=== PATIENT | female | born 1955 | race Caucasian/White ===

== ENCOUNTER 2017-02-02 08:21 | Observation (INO) ==
[2017-02-02] MEDS ORDERED: NITROGLYCERIN SL 0.4 MG TABLET SL PRN (08:40)
[2017-02-02] MEDS ORDERED: ONDANSETRON 4 MG/2 ML VIAL IV PRN ×2 (08:40→11:12)
[2017-02-02] MEDS ORDERED: MORPHINE 2 MG/1 ML SYRINGE IV PRN (08:40)
[2017-02-02] MEDS ORDERED: ASPIRIN 325 MG TABLET PO STA (08:40)
[2017-02-02] MEDS ORDERED: METOPROLOL TARTRATE 5 MG/5 ML VIAL IV STA (08:40)
[2017-02-02] MEDS ORDERED: ENOXAPARIN 100 MG/ML SYRINGE SUBCUT STA (08:40)
[2017-02-02 08:59] LABS: Basophils % 0.6 % (0.0-0.8); Eosinophils % 0.6 % (0.00-10.9); Hematocrit 36.8 VOL% (35.7-47.0); Immature Granulocytes % 0.8 %; Immature Granulocytes Absolute 0.04 #; Lymphocytes # 1.9 10*3/uL (1.4-4.0); Mean Corpuscular HGB Conc 35.3 GM/DL (32-36); Mean Corpuscular Hemoglobin 31 PG (27-34); Mean Corpuscular Volume 88.2 FL (87-102); Mean Platelet Volume 9.9 FL (9.6-12.0); Monocytes # 0.4 10*3/uL (0.11-0.8); Monocytes % 8.7 % (1.7-12.7); Neutrophils # 2.5 10*3/uL (1.4-7.4); Neutrophils % 50.3 % (38.7-73.9); Platelet Count 225 T/CUMM (130-400); Red Blood Count 4.17 MC/CUMM (3.8-5.5); Red Cell Distribution Width 12.2 % (9.3-17.3)
[2017-02-02 09:06] LABS: PT Patient Result 10.5 SECS; Partial Thromboplastin Time 26.8 SECS (0-40)
[2017-02-02] MEDS ORDERED: METOPROLOL TARTRATE 5 MG/5 ML VIAL IV ONE (09:24)
[2017-02-02] MEDS ORDERED: ENOXAPARIN 100 MG/ML SYRINGE SUBCUT ONE (09:24)
[2017-02-02] MEDS ORDERED: ASPIRIN 325 MG TABLET ONE (09:24)
[2017-02-02 09:34] LABS: Apearance,Urine CLEAR (Clear); Bilirubin,Urine Negative (Negative); Blood, Urine Small mg/dL (Negative); Glucose,Urine (UA) Negative (Negative); Ketones,Urine Negative (Negative); Nitrite,Urine Negative (Negative); Protein,Urine Negative; RBC,Urine 2 /HPF (0-4); Squamous Epithelial Cell,Urine Occasional /HPF (0-10); Urine Color Yellow (Yellow); Urine Urobilinogen < 2.0 EU/DL (0.2-1.0); WBC,Urine 3 /HPF (0-6)
[2017-02-02 09:37] LABS: Bilirubin,Total 0.4 MG/DL (0.2-1.0); Calcium 8.9 MG/DL (8.5-10.1); Osmolality,Calculated 278.5 MOS/KG (273-304); Total Protein 6.9 G/DL (6.4-8.3)
[2017-02-02 09:44] LABS: Barbiturates Screen,Urine Negative (Negative); Benzodiazepines Screen,Urine Negative (Negative); Cannabinoid Screen,Urine Negative (Negative); Opiate Screen,Urine Negative (Negative); Phencyclidine Screen,Urine Negative (Negative)
[2017-02-02] MEDS ORDERED: SODIUM CHLORIDE 0.9% 1,000 ML IV SCH (11:12)
[2017-02-02] MEDS ORDERED: ACETAMINOPHEN 325 MG TABLET PO PRN (11:12)
[2017-02-02 12:40] LABS: Risk Ratio 5.1
[2017-02-02 17:22] VITALS: BP 159/78
[2017-02-02] MEDS ORDERED: SIMVASTATIN 40 MG TABLET PO SCH (21:00)
[2017-02-02] MEDS ORDERED: FLUoxetine 20 MG CAPSULE PO SCH (21:00)
[2017-02-02] MEDS ORDERED: ASPIRIN EC 81 MG TABLET PO SCH (21:00)
[2017-02-02] MEDS ORDERED: Krill Oil [Krill Oil] 500 MG PO SCH (21:00)
[2017-02-02] MEDS ORDERED: MULTIVITAMIN (CENTRUM) TABLET PO SCH (21:00)
[2017-02-03] MEDS ORDERED: PANTOPRAZOLE 40 MG TABLET PO SCH (09:00)
[2017-02-03] MEDS ORDERED: PROPRANOLOL LA 60 MG CAPSULE PO SCH (09:00)
== END 2017-02-02 18:28 | disposition home or self-care (01) ==
LOC: N.ED 08:21 → N.EDINP 08:21 → N.5E 11:11
PROVIDERS: ADMIT Internal Medicine Geriatric Medicine; ATTEND Internal Medicine Geriatric Medicine

== ENCOUNTER 2018-03-24 06:41 | Inpatient (IN) ==
[2018-03-22 10:03] LABS: Basophils % 0.7 % (0.0-0.8); Eosinophils % 0.7 % (0.00-10.9); Hematocrit 28.8 VOL% (35.7-47.0); Hemoglobin 9.4 GM/DL (12.0-16.0); Immature Granulocytes % 0.4 %; Immature Granulocytes Absolute 0.02 #; Lymphocytes # 1.4 10*3/uL (1.4-4.0); Lymphocytes % 30.8 % (21.3-54.2); Mean Corpuscular HGB Conc 32.6 GM/DL (32-36); Mean Corpuscular Hemoglobin 30 PG (27-34); Mean Corpuscular Volume 90.9 FL (87-102); Mean Platelet Volume 11.1 FL (9.6-12.0); Monocytes # 0.5 10*3/uL (0.11-0.8); Monocytes % 11.8 % (1.7-12.7); Neutrophils # 2.5 10*3/uL (1.4-7.4); Neutrophils % 55.6 % (38.7-73.9); Platelet Count 256 T/CUMM (130-400); Red Blood Count 3.17 MC/CUMM (3.8-5.5); Red Cell Distribution Width 12.2 % (9.3-17.3); White Blood Count 4.5 T/CUMM (4-12)
[2018-03-22 10:34] LABS: Alanine Aminotransferase 56 U/L (13-56); Albumin 3.6 G/DL (3.4-5.0); Alkaline Phosphatase 57 U/L (45-117); Aspartate Amino Transferase 48 U/L (0-37); Bilirubin,Total < 0.39 MG/DL (0.2-1.0); Blood Urea Nitrogen 18 MG/DL (7-18); Calcium 8.6 MG/DL (8.5-10.1); Glucose 103 MG/DL (74-106); Osmolality,Calculated 278.5 MOS/KG (273-304); Potassium 4.3 MMOL/L (3.5-5.1); Sodium 139 MMOL/L (136-145); Total Protein 7.5 G/DL (6.4-8.3)
[~2018-03-24 06:41] MED LIST: ALVIMOPAN 12 MG CAPSULE PO ONE; ERTAPENEM 1,000 MG VIAL IV ONE
[2018-03-24] MEDS: LACTATED RINGERS 1,000 ML IV SCH ×4 (07:19→23:14)
[2018-03-24] MEDS ORDERED: ERTAPENEM 1,000 MG VIAL ONE (07:40)
[2018-03-24] MEDS ORDERED: ALVIMOPAN 12 MG CAPSULE ONE (07:40)
[2018-03-24] MEDS ORDERED: FAMOTIDINE 20 MG TABLET ONE (07:44)
[2018-03-24] MEDS ORDERED: DIAZEPAM 5 MG TABLET ONE (07:44)
[2018-03-24] MEDS ORDERED: FAMOTIDINE 20 MG TABLET PO ONE (07:45)
[2018-03-24] MEDS ORDERED: DIAZEPAM 5 MG TABLET PO ONE (07:46)
[2018-03-24] MEDS ORDERED: BUPIVACAINE 0.5% 50 ML VIAL ONE (09:28)
[2018-03-24] MEDS ORDERED: EPINEPHrine 1 MG/ML VIAL ONE (09:28)
[2018-03-24] MEDS ORDERED: BUPIVACAINE MPF 0.25% 30 ML VIAL ONE (09:36)
[2018-03-24] MEDS ORDERED: LIDOCAINE 1%/EPI INJ 20 ML VIAL ONE (09:36)
[2018-03-24] MEDS ORDERED: LIDOCAINE 1% 5 ML VIAL ONE (09:41)
[2018-03-24] MEDS ORDERED: MIDAZOLAM 2 MG/2 ML VIAL ONE (09:41)
[2018-03-24] MEDS ORDERED: TISSUE ADHESIVE 1 EACH APPLICATOR TOP ONE (12:47)
[2018-03-24] MEDS ORDERED: HYDROmorphone 2 MG/1 ML VIAL IV PRN (13:13)
[2018-03-24] MEDS ORDERED: ONDANSETRON 4 MG/2 ML VIAL IV PRN ×2 (13:13→13:19)
[2018-03-24 13:34] LABS: Hematocrit 30.3 VOL% (35.7-47.0); Hemoglobin 9.8 GM/DL (12.0-16.0)
[2018-03-24] MEDS: HYDROmorphone 2 MG/1 ML VIAL IV PRN ×2 (13:47→13:52)
[2018-03-24] MEDS ORDERED: HYDROmorphone 2 MG/1 ML VIAL ONE (13:47)
[2018-03-24] MEDS ORDERED: ONDANSETRON 4 MG/2 ML VIAL ONE (13:47)
[2018-03-24] MEDS: ALVIMOPAN 12 MG CAPSULE PO SCH (21:43)
[2018-03-24] MEDS: ASPIRIN EC 81 MG TABLET PO SCH (21:43)
[2018-03-24 22:05] LABS: Hematocrit 27.2 VOL% (35.7-47.0); Hemoglobin 8.9 GM/DL (12.0-16.0)
[2018-03-25] MEDS: LACTATED RINGERS 1,000 ML IV SCH ×5 (00:28→15:03)
[2018-03-25 06:22] LABS: Hematocrit 26.2 VOL% (35.7-47.0); Hemoglobin 8.3 GM/DL (12.0-16.0)
[2018-03-25 06:23] LABS: Basophils % 0.1 % (0.0-0.8); Hematocrit 25.7 VOL% (35.7-47.0); Hemoglobin 8.3 GM/DL (12.0-16.0); Immature Granulocytes % 0.5 %; Immature Granulocytes Absolute 0.05 #; Lymphocytes # 0.9 10*3/uL (1.4-4.0); Mean Corpuscular HGB Conc 32.3 GM/DL (32-36); Mean Corpuscular Hemoglobin 29 PG (27-34); Mean Corpuscular Volume 89.2 FL (87-102); Mean Platelet Volume 11.6 FL (9.6-12.0); Monocytes % 9.2 % (1.7-12.7); Neutrophils # 8.8 10*3/uL (1.4-7.4); Neutrophils % 82.2 % (38.7-73.9); Platelet Count 245 T/CUMM (130-400); Red Blood Count 2.88 MC/CUMM (3.8-5.5); White Blood Count 10.7 T/CUMM (4-12)
[2018-03-25 06:36] LABS: Calcium 8.6 MG/DL (8.5-10.1); Osmolality,Calculated 279.3 MOS/KG (273-304); Potassium 4.1 MMOL/L (3.5-5.1)
[2018-03-25] MEDS: ENOXAPARIN 40 MG/0.4 ML SYRINGE SUBCUT SCH (09:27)
[2018-03-25] MEDS: PROPRANOLOL LA 60 MG CAPSULE PO SCH (09:28)
[2018-03-25] MEDS: ALVIMOPAN 12 MG CAPSULE PO SCH ×2 (09:29→21:09)
[2018-03-25] MEDS: SIMETHICONE CHEW 125 MG TABLET PO PRN ×2 (15:03→21:09)
[2018-03-25] MEDS: MELATONIN 3 MG TABLET PO PRN (21:09)
[2018-03-25] MEDS: ASPIRIN EC 81 MG TABLET PO SCH (21:09)
[2018-03-26] MEDS: LACTATED RINGERS 1,000 ML IV SCH (05:05)
[2018-03-26] MEDS: ALVIMOPAN 12 MG CAPSULE PO SCH ×2 (10:16→20:39)
[2018-03-26] MEDS: PROPRANOLOL LA 60 MG CAPSULE PO SCH (10:16)
[2018-03-26] MEDS: ENOXAPARIN 40 MG/0.4 ML SYRINGE SUBCUT SCH (10:17)
[2018-03-26] MEDS: MELATONIN 3 MG TABLET PO PRN (20:39)
[2018-03-26] MEDS: ASPIRIN EC 81 MG TABLET PO SCH (20:39)
[2018-03-27] MEDS: ENOXAPARIN 40 MG/0.4 ML SYRINGE SUBCUT SCH (06:38)
[2018-03-27 08:07] VITALS: BP 139/69
[2018-03-27] MEDS: ALVIMOPAN 12 MG CAPSULE PO SCH (08:55)
[2018-03-27] MEDS: PROPRANOLOL LA 60 MG CAPSULE PO SCH (08:55)
== END 2018-03-27 10:47 | disposition home or self-care (01) | DRG 331 ==
LOC: N.OR 06:41 → N.SDSINP 06:43 → N.3E 14:22
PROVIDERS: ADMIT Surgery; ATTEND Surgery